=== PATIENT | female | born 1995 | race African-American/Black ===

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

== ENCOUNTER 2017-03-20 09:37 | Emergency (ER) | payer OTHER ==
--- NOTE | ~2017-03-20 | US98 ---
[facility] A Service of [facility] & [facility] RADIOLOGY TEXT RESULTS PATIENT: NIALL INTERIANO LOCATION: [facility] : [birth year] UNIT #: [id number] AGE: [address]: Katharine Arndt MD SEX: F ORDER DR: [id number] [facility] [address] [place], [place] [address] [id number] E MR#: [id number] Acc #: [id number] NAME: NIALL INTERIANO : 1995 SEX: F STUDY DATE/TIME: 03/20/2017 14:11 UNIT: [facility] ROOM: STUDY DESCRIPTION: US Pelvic Non-OB Complete Attending Physician: Katharine Arndt M.D. Ordering Physician: Katharine Arndt M.D. Primary Care Physician: Best Judd M.D. MEDICAL IMAGING REPORT This report is preliminary unless electronic signature is present EXAM Transabdominal and transvaginal pelvic ultrasound. 03/20/2017 HISTORY Bleeding for 10 days after miscarriage. Evaluate for retained products of . Pain. Quantitative beta HCG 21. Patient states pelvic pain bilaterally for 8 hours. Last menstrual period 03/10/2017. P 1, G 2, miscellaneous 1. COMPARISON No prior pelvic ultrasound for comparison. Correlation made to CT abdomen and pelvis without contrast 07/04/2016. FINDINGS The uterus measures 7.4 x 4.8 x 3.7 cm. Small amount of somewhat complex fluid material is seen within the endometrial canal, particularly in the upper uterine segment, may represent blood products. Endometrial bilayer, exclusive of the presumed fluid within the canal, measures about 3 or 4 mm thickness. The uterine myometrium is very heterogeneous although no focal lesion is identified. There is small to moderate fluid bilaterally within the pelvis. The right ovary measures 3.8 x 2.3 x 3.2 cm and contains a dominant complex cyst with internal septation, measuring 2.9 x 1.1 x 1.9 cm. Right ovary demonstrates normal color and spectral Doppler flow. The left ovary measures 6.2 x 3.2 x 5.2 cm, which is inclusive of a large simple appearing cyst measuring nearly 3.8 x 3.2 x 2.8 cm. Left ovary demonstrates normal color and spectral Doppler flow. [facility] A Service of [facility] & [facility] RADIOLOGY TEXT RESULTS PATIENT: NIALL INTERIANO LOCATION: [facility] : [birth year] UNIT #: [id number] AGE: [address]: Katharine Arndt MD SEX: F ORDER DR: IMPRESSION 1. Echogenic material is seen within the endometrial canal in the upper uterine segment which is nonspecific but may represent blood products in this patient with history of recently passing blood. No definite endometrial lesion or definite sonographic evidence of retained products of conception identified. Uterine myometrium is heterogeneous. 2. Small to small to moderate quantity free fluid is seen bilaterally within the pelvis. 3. There is a large but simple left ovarian cyst measuring up to 3.8 cm. There is a complex right adnexal cyst with internal septation measuring up to 2.9 cm. 4. Color and spectral Doppler flow was documented each ovary. Dictated by... Joann Henriquez M.D. THIS IS AN ELECTRONICALLY VERIFIED REPORT Joann Henriquez M.D. at 03/23/2017 9:29 AM Priya TD: 03/20/2017 16:49 JOB #: [id number] MEDICAL IMAGING REPORT Page 1 of 1 COPY
[2017-03-20 10:07] LABS: URINE SOURCE CLEAN CATCH
[2017-03-20 10:15] LABS: URINE APPEARANCE CLEAR; URINE BILIRUBIN NEG (NEG); URINE BLOOD NEG (NEG); URINE COLOR DK YELLOW; URINE GLUCOSE NEG (NEG); URINE KETONE TRACE (NEG); URINE LEUKOCYTE ESTERASE 1+ (NEG); URINE NITRATE NEG (NEG); URINE PROTEIN NEG (NEG); URINE SPECIFIC GRAVITY 1.038 (1.003-1.035)
[2017-03-20 10:20] LABS: CULTURE INDICATED? YES; URINE BACTERIA AUWI 2+ (NEGATIVE); URINE SQUAMOUS EPITHELIAL CELL OCC /[HPF]
[2017-03-20 10:34] LABS: U HYALINE CASTS AUWI 0-2 /[LPF]; URBCS1 AUWI 0-2 /[HPF] (0-2)
[2017-03-20 10:35] LABS: URINE MUCUS PRESENT
[2017-03-20 11:02] LABS: BASOPHIL% 0.5 % (0-2.5); EOSINOPHIL# 0.1 X10e3 (0-0.7); EOSINOPHIL% 1.8 % (0.0-7.0); HEMATOCRIT 38.1 % (35.0-45.0); HEMOGLOBIN 12.3 gm/dL (12.0-16.0); LYMPHOCYTE# 2.4 X10e3 (1.0-3.5); LYMPHOCYTE% 29.8 % (17.0-45.0); MEAN CELL VOLUME 83.6 FL (83-96); MEAN CORPUSCULAR HGB CONC 32.3 g/dL (30-36); MEAN PLATELET VOLUME 9.8 FL (6.5-11.5); MONOCYTE# 0.7 X10e3 (0-1.0); MONOCYTE% 8.7 % (3.0-12.0); NEUTROPHIL# 4.7 X10e3 (1.5-7.1); NEUTROPHIL% 59.2 % (40-75); PLATELET COUNT 235 X10e3 (140-420); RED BLOOD COUNT 4.56 X10e (3.90-5.30); RED CELL DISTRIBUTION WIDTH 13.9 % (11.0-15.5); WHITE BLOOD COUNT 7.9 X10e3 (4.0-10.5)
[2017-03-20 11:06] LABS: DIFF IND NO
[2017-03-20 12:13] LABS: ALBUMIN SERUM 3.7 g/dL (3.5-5.0); ALKALINE PHOSPHATASE 70 U/L (32-92); ALT (SGPT) 12 U/L (8-29); AMYLASE 26 U/L (0-46); AST (SGOT) 23 U/L (14-37); BILIRUBIN,TOTAL 0.4 mg/dL (0.2-2.0); BLOOD UREA NITROGEN 10 mg/dL (9-23); BUN/CREATININE RATIO 11.11; CALCIUM SERUM 8.6 mg/dL (8.4-10.2); CARBON DIOXIDE 24 mmol/L (22-31); CHLORIDE 100 mmol/L (100-111); CREATININE SERUM 0.9 mg/dL (0.6-1.4); GLOM FILT RATE Estimated 107.5 mL/min (>60); GLUCOSE FASTING 94 mg/dL (70-110); LIPASE 20 U/L (22-51); POTASSIUM 4.6 mmol/L (3.5-5.1); PROTEIN TOTAL SERUM 6.8 g/dL (6.0-8.3); SODIUM 133 mmol/L (135-145)
[2017-03-20 12:18] LABS: BILIRUBIN, DIRECT <0.1 mg/dL (0.0-0.2); BILIRUBIN,INDIRECT 0.3 mg/dL (0.0-0.9)
== END 2017-03-20 15:40 | disposition home or self-care (01) ==
LOC: CED 09:37
PROVIDERS: Student in an Organized Health Care Education/Training Program
DX: O23.11 Infections of bladder in pregnancy, first trimester (principal); O34.81 Maternal care for other abnormalities of pelvic organs, first trimester; O99.331 Smoking (tobacco) complicating pregnancy, first trimester; F17.209 Nicotine dependence, unspecified, with unspecified nicotine-induced disorders
CPT/HCPCS: 76830; 76856; 80048; 80076; 81003; 82150; 83690; 84702; 84703; 85025; 87086; 99284

== ENCOUNTER 2017-04-24 21:27 | Emergency (ER) | payer OTHER ==
--- NOTE | ~2017-04-24 | EKG ---
PATIENT: NIALL INTERIANO UNIT #: [id number] Ventricular Rate: 79 BPM Atrial Rate: 79 BPM P-R Interval: 208 ms QRS Duration: 84 ms Q-T Interval: 378 ms QTC Calculation(Bezet): 433 ms P Ennis: 48 degrees Calculated R Ennis: 45 degrees Calculated T Ennis: 51 degrees Diagnosis Line: Normal sinus rhythm Diagnosis Line: Normal ECG Diagnosis Line: No previous ECGs available Diagnosis Line: Confirmed by MAYI BENSON MD ([id number]) on Diagnosis Line: 04/25/2017 2:01:01 PM INTERPRETING MD: KELLEY LUIS
--- NOTE | ~2017-04-24 | CR72 ---
[facility] A Service of [facility] & [facility] RADIOLOGY TEXT RESULTS PATIENT: NIALL INTERIANO LOCATION: [facility] : [birth year] UNIT #: [id number] AGE: [address]: Viv Ford SEX: F ORDER DR: [id number] [id number] [place], [place] [address] [id number] E MR#: [id number] Acc #: [id number] NAME: NIALL INTERIANO : 1995 SEX: F STUDY DATE/TIME: 04/24/2017 23:52 UNIT: [facility] ROOM: STUDY DESCRIPTION: CR Chest Single View Portable Attending Physician: Viv Ford Pa-C Ordering Physician: Ed Doctor [id number] [facility] Primary Care Physician: Primary Care Physician No MEDICAL IMAGING REPORT This report is preliminary unless electronic signature is present EXAM Portable chest INDICATIONS Right-sided chest pain and shortness of air today. PROCEDURE Frontal view chest. COMPARISON 02/21/2016 FINDINGS Heart size unchanged. Lungs clear. No pleural fluid or pneumothorax. IMPRESSION No active process Dictated by... Dixon Vidal M.D. THIS IS AN ELECTRONICALLY VERIFIED REPORT Dixon Vidal M.D. at 04/25/2017 9:55 PM EEVanesa/jez TD: 04/25/2017 05:44 JOB #: [id number] MEDICAL IMAGING REPORT Page 1 of 1 COPY
[2017-04-25 00:23] LABS: BASOPHIL# 0.1 X10e3 (0-0.3); BASOPHIL% 0.7 % (0-2.5); EOSINOPHIL# 0.2 X10e3 (0-0.7); EOSINOPHIL% 2.8 % (0.0-7.0); HEMATOCRIT 40.3 % (35.0-45.0); HEMOGLOBIN 13.4 gm/dL (12.0-16.0); LYMPHOCYTE# 3.1 X10e3 (1.0-3.5); LYMPHOCYTE% 38.1 % (17.0-45.0); MEAN CELL VOLUME 82.7 FL (83-96); MEAN CORPUSCULAR HEMOGLOBIN 27.5 PG (28-34); MEAN CORPUSCULAR HGB CONC 33.2 g/dL (30-36); MEAN PLATELET VOLUME 9.6 FL (6.5-11.5); MONOCYTE# 0.6 X10e3 (0-1.0); MONOCYTE% 7.4 % (3.0-12.0); NEUTROPHIL# 4.1 X10e3 (1.5-7.1); PLATELET COUNT 252 X10e3 (140-420); RED BLOOD COUNT 4.87 X10e (3.90-5.30); RED CELL DISTRIBUTION WIDTH 14.2 % (11.0-15.5); WHITE BLOOD COUNT 8.1 X10e3 (4.0-10.5)
[2017-04-25 00:25] LABS: DIFF IND NO
[2017-04-25 00:29] LABS: PARTIAL THROMBOPLASTIN TIME 25.7 SECONDS (23.5-31.3); PROTHROMBIN TIME (PATIENT) 10.9 SECONDS (10.0-11.7)
[2017-04-25 00:43] LABS: ALBUMIN SERUM 4.1 g/dL (3.5-5.0); ALKALINE PHOSPHATASE 76 U/L (32-92); ALT (SGPT) 11 U/L (8-29); AST (SGOT) 15 U/L (14-37); BILIRUBIN, DIRECT <0.1 mg/dL (0.0-0.2); BILIRUBIN,TOTAL 0.1 mg/dL (0.2-2.0); BLOOD UREA NITROGEN 12 mg/dL (9-23); CALCIUM SERUM 9.7 mg/dL (8.4-10.2); CARBON DIOXIDE 29 mmol/L (22-31); CHLORIDE 100 mmol/L (100-111); CREATININE SERUM 0.8 mg/dL (0.6-1.4); GLUCOSE FASTING 93 mg/dL (70-110); POTASSIUM 4.3 mmol/L (3.5-5.1); PROTEIN TOTAL SERUM 7.8 g/dL (6.0-8.3); SODIUM 135 mmol/L (135-145)
[2017-04-25 01:00] LABS: POC - CKMB <1.0 ng/mL (0.0-7.9); POC - TROPONIN <0.05 ng/mL (<=0.05)
== END 2017-04-25 01:23 | disposition home or self-care (01) ==
LOC: CED 21:27
PROVIDERS: Physician Assistant
DX: R07.89 Other chest pain (principal); R06.02 Shortness of breath; R11.0 Nausea; I10 Essential (primary) hypertension; F17.200 Nicotine dependence, unspecified, uncomplicated
CPT/HCPCS: 36415; 71010; 80048; 80076; 82553; 84484; 84703; 85025; 85610; 85730; 93005; 99285